=== PATIENT | female | born 1995 | race Caucasian/White ===

== ENCOUNTER 2017-05-23 03:56 | Emergency (ER) | payer MEDICAID, OTHER ==
[2017-05-23 04:10] VITALS: BP 124/78
--- NOTE | 2017-05-23 04:42 | EDM.PDOC ---
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 The cat had been straight but it had been under observation for more than 10 days and hasn't had its immunizations except for rabies. However the cat is under quarantine now and can be watched. Was seen in the clinic earlier this evening and prescribed Augmentin. Throbbing pain and red she's going up the arm prompted her to come into emergency. Low-grade fever but no vomiting no diarrhea. Left Palm Pain Score (Numeric/FACES): 8 - Related Data Allergies Allergy/AdvReac Type Severity Reaction Status Date / Time No Known Allergies Allergy Verified 05/23/17 04:11 Home Meds: Home Meds Acetaminophen/HYDROcodone [[place] 325-5 MG] 1 - 2 tab PO Q4H PRN #12 tab [Rx] Amoxicillin/Potassium Clav [Augmentin 875-125 Tablet] 1 each PO BID 05/23/17 [ History] Past Medical History Cardiovascular History: Reports: Other (See Below) Other Cardiovascular History: palpatations CFA History: Reports: , Spontaneous Psychiatric History: Reports: Anxiety - Past Surgical History HEENT Surgical History: Reports: Tonsillectomy Social & Family History - Tobacco Use Smoking Status *Q: Current Every Day Smoker Years of Tobacco use: 8 Packs/Tins Daily: 0.5 Used Tobacco, but Quit: No Second Hand Smoke Exposure: Yes - Caffeine Use Caffeine Use: Reports: None - Alcohol Use Days Per Week of Alcohol Use: 1 Number of Drinks Per Day: 5 Total Drinks Per Week: 5 - Recreational Drug Use Recreational Drug Use: No ED ROS GENERAL - Review of Systems Review Of Systems: See Below Constitutional: Reports: Fever (low-grade). Denies: Weakness HEENT: Reports: No Symptoms Respiratory: Reports: No Symptoms Cardiovascular: Reports: No Symptoms GI/Abdominal: Reports: No Symptoms Skin: Reports: Other (redness swelling left Palm, thenar eminence, with red streak going up the frazier aspect of the forearm and even into the upper arm) Neurological: Reports: Numbness (mild numbness left hand) ED EXAM, ANIMAL BITE - Physical Exam Exam: See Below Exam Limited By: No Limitations General Appearance: Alert, Anxious, Mild Distress, Other (appears well, vital signs normal except for mild elevation temperature) Eye Exam: Bilateral Eye: Normal Inspection Nose: Normal Inspection Throat/Mouth: Normal Inspection Head: Atraumatic, Normocephalic Neck: Normal Inspection Respiratory/Chest: No Respiratory Distress, No Accessory Muscle Use Cardiovascular: Normal Peripheral Pulses, Regular Rate, Rhythm (anemia) Extremities: Redness ( swelling leftpalm thenar eminence with red streaks extending up the forearm volar aspect and into the upper arm), Other (no abscess ) Neurological: Alert, Oriented, No Motor/Sensory Deficits Psychiatric: Other (normal behavior) Course - Vital Signs Last Recorded V/S: Last Vital Signs Temp 37.8 C 05/23/17 04:09 Pulse 86 05/23/17 04:09 Resp 16 05/23/17 04:09 BP 124/78 05/23/17 04:09 Pulse Ox 100 05/23/17 04:09 - Orders/Labs/Meds Orders: Active Orders 24 hr Category Date Time Status Orthopedic Treatments [RC] ASDIRECTED Care 05/23/17 04:37 Ordered - Re-Assessments/Exams Free Text/Narrative Re-Assessment/Exam: 05/23/17 04:38 21-year-old female with Right to left hand, now infected with localized wound infection but also lymphangitis. Continue current antibiotic Augmentin/clavulanic Prescribed pain medication Sling Note off work Departure - Departure Time of Disposition: 04:38 Disposition: Home, Self-Care 01 Condition: Good Clinical Impression: Lymphangitis Cat bite of left hand Qualifiers: Encounter type: initial encounter Qualified Code(s): S61.452A - Open bite of left hand, initial encounter - Discharge Information Prescriptions: Acetaminophen/HYDROcodone [[place] 325-5 MG] 1 - 2 tab PO Q4H PRN #12 tab PRN Reason: moderate to severe pain Instructions: Animal Bite, [id number] Referrals: PCP,None [Primary Care Provider] - Forms: ED Department Discharge, ED Return to Work/School Form Additional Instructions: according to the [place] vaccination registry site, your last tetanus booster was 2014 so you are up-to-date for immunizations Cat-bite infections are quite common, he did take at least 24 more often 48 hours to start looking better after starting antibiotics. Keep your arm elevated you may apply heat to help the infection prove faster but it may increase the pain you may take ibuprofen for the pain, or the prescription pain medicine. - My Orders Last 24 Hours: My Active Orders 05/23/17 04:37 Orthopedic Treatments [RC] ASDIRECTED - Assessment/Plan Last 24 Hours: My Active Orders 05/23/17 04:37 Orthopedic Treatments [RC] ASDIRECTED
== END 2017-05-23 05:10 | disposition home or self-care (01) ==
LOC: JP.ED 03:56
DX: S61.452A Open bite of left hand, initial encounter (principal); I89.1 Lymphangitis; F17.210 Nicotine dependence, cigarettes, uncomplicated; W55.01XA Bitten by cat, initial encounter
CPT/HCPCS: 99283

== ENCOUNTER 2017-05-28 17:56 | Emergency (ER) | payer MEDICAID, OTHER ==
[2017-05-28 18:21] VITALS: BP 130/75
--- NOTE | 2017-05-28 18:41 | EDM.PDOC ---
ED HPI GENERAL MEDICAL PROBLEM - General Chief Complaint: General Stated Complaint: CAT BITE/MUSCLE ACHES,TIGHT JAW Time Seen by Provider: 05/28/17 18:25 Source of Information: Reports: Patient, Family, Old Records, RN Notes Reviewed History Limitations: Reports: No Limitations - History of Present Illness INITIAL COMMENTS - FREE TEXT/NARRATIVE: 21-year-old female presents emergency department today with concerns for tetanus , she was bitten by a cat at an animal prison on May [place], 6 days ago evaluated in the emergency department May 23 started on antibiotics of Augmentin, the cat is under quarantine has been under quarantine over 10 days no suspicious behavior no concern for rabies at this time. She is experiencing muscle stiffness complains of jaw tightness stiffness no difficulty breathing, tetanus was 2005, she has declined tetanus vaccination Bilateral Shoulder Pain Score (Numeric/FACES): 4 - Related Data Allergies Allergy/AdvReac Type Severity Reaction Status Date / Time No Known Allergies Allergy Verified 05/23/17 04:11 Home Meds: Home Meds Acetaminophen/HYDROcodone [[place] 325-5 MG] 1 - 2 tab PO Q4H PRN #12 tab [Rx] Amoxicillin/Potassium Clav [Augmentin 875-125 Tablet] 1 each PO BID 05/23/17 [ History] Past Medical History Cardiovascular History: Reports: Other (See Below) Other Cardiovascular History: palpatations 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: , 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 Psychiatric History: Reports: Anxiety - Past Surgical History HEENT Surgical History: Reports: Tonsillectomy Social & Family History - Tobacco Use Smoking Status *Q: Light Tobacco Smoker Years of Tobacco use: 10 Packs/Tins Daily: 0.5 Used Tobacco, but Quit: No Second Hand Smoke Exposure: Yes - Caffeine Use Caffeine Use: Reports: Soda - Alcohol Use Days Per Week of Alcohol Use: 1 Number of Drinks Per Day: 5 Total Drinks Per Week: 5 - Recreational Drug Use Recreational Drug Use: No ED ROS GENERAL - Review of Systems Review Of Systems: See Below Constitutional: Denies: Fever, Chills HEENT: Reports: No Symptoms Respiratory: Reports: No Symptoms Cardiovascular: Reports: No Symptoms GI/Abdominal: Reports: No Symptoms : Reports: No Symptoms Musculoskeletal: Reports: Muscle Pain, Muscle Stiffness Skin: Reports: No Symptoms Neurological: Reports: No Symptoms ED EXAM, GENERAL - Physical Exam Exam: See Below Exam Limited By: No Limitations General Appearance: Alert, WD/WN, No Apparent Distress Eye Exam: Bilateral Eye: Normal Inspection Throat/Mouth: Normal Inspection, Normal Lips, Normal Teeth, Normal Gums, Normal Oropharynx, Normal Voice, No Airway Compromise Head: Atraumatic, Normocephalic Neck: Normal Inspection, Supple, Non-Tender, Full Range of Motion Respiratory/Chest: No Respiratory Distress, Lungs Clear, Normal Breath Sounds, No Accessory Muscle Use, Chest Non-Tender Cardiovascular: Regular Rate, Rhythm, No Murmur Course - Vital Signs Last Recorded V/S: Last Vital Signs Temp 96.1 F 05/28/17 18:28 Pulse 78 05/28/17 18:28 Resp 16 05/28/17 18:28 BP 130/75 05/28/17 18:28 Pulse Ox 100 05/28/17 18:28 - Orders/Labs/Meds Orders: Active Orders 24 hr Category Date Time Status TETANUS ANTIBODY IGG [REF] Routine Lab 05/28/17 18:53 Received Labs: Laboratory Tests 05/28/17 05/28/17 05/28/17 Range/Units 18:39 18:39 18:39 WBC 6.7 (4.5-11.0) K/uL RBC 4.69 (3.30-5.50) M/uL Hgb 13.0 D (12.0-15.0) g/dL Hct 38.7 (36.0-48.0) % MCV 83 (80-98) fL MCH 28 (27-31) pg MCHC 34 (32-36) % Plt Count 280 (150-400) K/uL Neut % (Auto) 50 (36-66) % Lymph % (Auto) 38 (24-44) % [place] % (Auto) 10 H (2-6) % Eos % (Auto) 1 L (2-4) % Baso % (Auto) 1 (0-1) % Sodium 142 (140-148) mmol/L Potassium 3.3 L (3.6-5.2) mmol/L Chloride 104 (100-108) mmol/L Carbon Dioxide 28 (21-32) mmol/L Anion Gap 13.3 (5.0-14.0) mmol/L BUN 6 L (7-18) mg/dL Creatinine 0.6 (0.6-1.0) mg/dL Est Cr Clr Drug Dosing 130.30 mL/min Estimated GFR (MDRD) > 60 (>60) Glucose 89 (74-106) mg/dL Calcium 9.2 (8.5-10.1) mg/dL Total Bilirubin 0.2 (0.2-1.0) mg/dL AST 16 (15-37) U/L ALT 19 (12-78) U/L Alkaline Phosphatase 38 L (46-116) U/L Creatine Kinase 33 (26-192) U/L Total Protein 7.2 (6.4-8.2) g/dL Albumin 4.0 (3.4-5.0) g/dL Globulin 3.2 (2.3-3.5) g/dL Albumin/Globulin Ratio 1.3 (1.2-2.2) Departure - Departure Time of Disposition: 19:37 Disposition: Home, Self-Care 01 Condition: Good Clinical Impression: Cat bite of left hand Qualifiers: Encounter type: initial encounter Qualified Code(s): S61.452A - Open bite of left hand, initial encounter - Discharge Information Referrals: PCP,None [Primary Care Provider] - Forms: ED Department Discharge Additional Instructions: Please complete the course of antibiotics prescribed, please establish with a primary care provider for further evaluation, call return to the emergency department worsening of symptoms - My Orders Last 24 Hours: My Active Orders 05/28/17 18:53 TETANUS ANTIBODY IGG [REF] Routine - Assessment/Plan Last 24 Hours: My Active Orders 05/28/17 18:53 TETANUS ANTIBODY IGG [REF] Routine Plan: Assessment Acuity = acute Site and laterality = cat-bite with potential for tetanus exposure Etiology = local cellulitis currently on antibiotics of Augmentin Manifestations = muscle stiffness Location of injury = Home Lab values = CBC within normal limits potassium low at 3.3 consistent hypokalemia, CK level within normal limits Plan I again offered her tetanus prophylaxis she declined recommend she continue and complete the course of antibiotics follow up with her primary care in 3-5 days for reevaluation if no improvement This note was dictated using [employer] voice recognition software please call with any questions on syntax or cheryl.
== END 2017-05-28 19:56 | disposition home or self-care (01) ==
LOC: JP.ED 17:56
DX: S61.452A Open bite of left hand, initial encounter (principal); L03.114 Cellulitis of left upper limb; F17.210 Nicotine dependence, cigarettes, uncomplicated; W55.01XA Bitten by cat, initial encounter
CPT/HCPCS: 36415; 80053; 82550; 85025; 86317; 99284

== ENCOUNTER 2018-11-08 14:52 | Emergency (ER) | payer SELFPAY ==
[2018-11-08 15:10] VITALS: BP 128/85
--- NOTE | 2018-11-08 15:43 | EDM.PDOC ---
ED HPI GENERAL MEDICAL PROBLEM - General Chief Complaint: General Stated Complaint: NOT FEELING WELL Time Seen by Provider: 11/08/18 15:29 Source of Information: Reports: Patient History Limitations: Reports: No Limitations - History of Present Illness INITIAL COMMENTS - FREE TEXT/NARRATIVE: This lady said that she's been having some muscle spasms for about an hour. They 're mostly in her upper arms she's had some in her hands. She said she's had some diarrhea off and on for a week but has not been vomiting however. She drank about a half bottle of vodka last night. Earlier today she drank a bottle of Pedialyte and says she held that down without any problems. She thinks maybe she might be dehydrated and needs IV fluid. She does not complain of dizziness when she is up walking. 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 Psychiatric History: Reports: Anxiety - Past Surgical History HEENT Surgical History: Reports: Tonsillectomy Social & Family History - Tobacco Use Smoking Status *Q: Current Every Day Smoker Years of Tobacco use: 9 Packs/Tins Daily: 0.5 - Caffeine Use Caffeine Use: Reports: Coffee, Soda, Tea - Recreational Drug Use Recreational Drug Use: No ED ROS GENERAL - Review of Systems Review Of Systems: See Below Constitutional: Reports: No Symptoms HEENT: Reports: No Symptoms Respiratory: Reports: No Symptoms Cardiovascular: Reports: No Symptoms Endocrine: Reports: No Symptoms GI/Abdominal: Reports: Other (Diarrhea on and off) : Reports: No Symptoms Musculoskeletal: Reports: Other (See history of present illness) Skin: Reports: No Symptoms Neurological: Reports: No Symptoms Psychiatric: Reports: No Symptoms Hematologic/Lymphatic: Reports: No Symptoms Immunologic: Reports: No Symptoms ED EXAM, GENERAL - Physical Exam Exam: See Below Exam Limited By: No Limitations General Appearance: Alert, WD/WN, No Apparent Distress Eye Exam: Bilateral Eye: Normal Inspection Nose: Normal Inspection Throat/Mouth: Normal Oropharynx Head: Atraumatic Neck: Normal Inspection Respiratory/Chest: No Respiratory Distress, Lungs Clear Cardiovascular: Regular Rate, Rhythm, No Murmur GI/Abdominal: Non-Tender Back Exam: Normal Inspection Extremities: Normal Inspection Neurological: Alert, Oriented, CN II-XII Intact, Normal Cognition, No Motor/ Sensory Deficits Psychiatric: Normal Affect Skin Exam: Warm, Dry Course - Vital Signs Last Recorded V/S: Last Vital Signs Temp 35.9 C 11/08/18 15:15 Pulse 69 11/08/18 15:15 Resp 16 11/08/18 15:15 BP 128/85 11/08/18 15:15 Pulse Ox 100 11/08/18 15:15 - Re-Assessments/Exams Free Text/Narrative Re-Assessment/Exam: 11/08/18 15:58 Standing blood pressure and pulse show very little change. This patient has no signs of volume depletion or dehydration. She does not need any kind of lab testing or IV fluids. She's tolerating oral liquids just fine. She's just had some cramps for 1 hour so it doesn't make any sense to be giving her IV fluids. It is recommended that she continue to rehydrate herself and she can add a little bit of salt to that Departure - Departure Time of Disposition: 15:40 Disposition: Home, Self-Care 01 Condition: Fair Clinical Impression: Muscle cramps - Discharge Information Instructions: Muscle Cramps and Spasms, [id number] Referrals: PCP,None [Primary Care Provider] - Forms: ED Department Discharge Additional Instructions: Try drinking either pedialyte or gatorade with between 1/2 and 1 teaspoon regular table salt. Calcium tablets (TUMS) help some people also. Avoid excess alcohol
== END 2018-11-08 15:50 | disposition home or self-care (01) ==
LOC: JP.ED 14:52
DX: R25.2 Cramp and spasm (principal); F17.210 Nicotine dependence, cigarettes, uncomplicated
CPT/HCPCS: 99283

== ENCOUNTER 2021-09-25 17:10 | Emergency (ER) | payer MEDICAID ==
[2021-09-25 17:47] VITALS: BP 114/76; PULSE 83
== END 2021-09-25 17:44 | disposition left against medical advice (07) ==
LOC: JP.ED 17:10
DX: R00.2 Palpitations (principal); Z53.21 Procedure and treatment not carried out due to patient leaving prior to being seen by health care provider

== ENCOUNTER 2022-09-10 10:54 | Emergency (ER) | payer MEDICAID ==
[2022-09-10 11:17] VITALS: BP 138/78; PULSE 89
[2022-09-10 12:18] LABS: ESTIMATED GFR 120 mL/min (>60)
[2022-09-10 12:23] LABS: CORONAVIRUS COVID-19 NAA NEGATIVE (NEGATIVE)
[2022-09-10 12:39] LABS: LYME AB IgG Negative (Negative); LYME AB IgM Negative (Negative)
== END 2022-09-10 13:13 | disposition home or self-care (01) ==
LOC: JP.ED 10:54
DX: F41.9 Anxiety disorder, unspecified (principal); F17.210 Nicotine dependence, cigarettes, uncomplicated; Z20.822 Contact with and (suspected) exposure to COVID-19; Z79.899 Other long term (current) drug therapy
CPT/HCPCS: 0241U; 36415; 80053; 81001; 84443; 85025; 86618; 99283; 99284

== ENCOUNTER 2022-10-13 17:33 | Emergency (ER) | payer MEDICAID ==
[2022-10-13 17:44] VITALS: BP 117/79; PULSE 72
[2022-10-13 18:14] LABS: BASOPHILS ABSOLUTE AUTO 0.06 K/uL (0.00-0.10); BASOPHILS PERCENT AUTO 0.6 % (0.1-1.3); EOSINOPHILS ABSOLUTE AUTO 0.07 K/uL (0.00-0.40); EOSINOPHILS PERCENT AUTO 0.7 % (0.0-5.4); HEMATOCRIT 34.8 % (34.3-46.0); HEMOGLOBIN 11.7 g/dL (11.2-15.5); IMMATURE GRAN ABSOLUTE AUTO 0.03 K/uL (0.00-0.23); IMMATURE GRAN PERCENT AUTO 0.3 % (0.0-0.7); LYMPHOCYTES ABSOLUTE AUTO 3.17 K/uL (0.8-3.3); LYMPHOCYTES PERCENT AUTO 29.5 % (11.4-47.7); MEAN CORPUSCULAR HEMOGLOBIN 27.7 pg (31.6-35.5); MEAN CORPUSCULAR HGB CONC 33.6 g/dL (31.6-35.5); MEAN CORPUSCULAR VOLUME 82.5 fL (81.4-99.0); MONOCYTES ABSOLUTE AUTO 0.67 K/uL (0.20-0.90); MONOCYTES PERCENT AUTO 6.2 % (3.3-12.6); NEUTROPHILS ABSOLUTE AUTO 6.74 K/uL (1.0-7.6); NEUTROPHILS PERCENT AUTO 62.7 % (40.0-78.1); PLATELET COUNT,PLT 266 K/uL (130-375); RED BLOOD CELL COUNT 4.22 M/uL (3.77-5.24); WHITE BLOOD CELL COUNT,WBC 10.7 K/uL (3.2-11.0)
[2022-10-13 18:25] LABS: APPEARANCE,URINE CLOUDY (CLEAR); BILIRUBIN,URINE NEGATIVE (NEGATIVE); COLOR,URINE RED (YELLOW); GLUCOSE,URINE NEGATIVE (NEGATIVE); KETONES,URINE TRACE mg/dL (NEGATIVE); LEUKOCYTE ESTERASE,URINE SMALL (NEGATIVE); NITRITE,URINE NEGATIVE (NEGATIVE); OCCULT BLOOD,URINE LARGE (NEGATIVE); PH,URINE 6.5 (5.0-8.0); PROTEIN,URINE 100 mg/dL (NEGATIVE); UROBILINOGEN,URINE 0.2 EU/dL (0.2-1.0)
[2022-10-13 18:33] LABS: AMORPHOUS SEDIMENT,URINE NOT SEEN; BACTERIA,URINE RARE; EPITHELIAL CELLS,URINE MANY; MUCUS,URINE NOT SEEN; RBC,URINE 75-100 (0-5)
[2022-10-13 18:34] LABS: A/G RATIO 1.2 (1.2-2.2); ALANINE AMINOTRANSFERASE,ALT 24 U/L (12-78); ALBUMIN 3.5 g/dL (3.4-5.0); ALKALINE PHOSPHATASE 34 U/L (46-116); ASPARTATE AMNIOTRANSFERASE,AST 15 U/L (15-37); BILIRUBIN TOTAL 0.4 mg/dL (0.2-1.0); BLOOD UREA NITROGEN,BUN 3 mg/dL (7-18); CALCIUM 8.4 mg/dL (8.5-10.1); CARBON DIOXIDE,CO2 26 mmol/L (21-32); CHLORIDE,CL 100 mmol/L (100-108); CREATINE KINASE,CK 30 U/L (26-192); CREATININE 0.5 mg/dL (0.6-1.0); EST CRCL DRUG DOSING (CG) 149.39 mL/min; ESTIMATED GFR 130 mL/min (>60); GLUCOSE RANDOM 85 mg/dL (74-106); MAGNESIUM 1.8 mg/dL (1.8-2.4); POTASSIUM,K 3.2 mmol/L (3.6-5.2); PROTEIN TOTAL,TP 6.5 g/dL (6.4-8.2); SODIUM,NA 134 mmol/L (140-148)
[2022-10-13 18:36] LABS: ANION GAP 11.2 mmol/L (5.0-14.0)
== END 2022-10-13 19:24 | disposition home or self-care (01) ==
LOC: JP.ED 17:33
DX: R25.2 Cramp and spasm (principal); Z87.891 Personal history of nicotine dependence
CPT/HCPCS: 36415; 80053; 81001; 82550; 83735; 85025; 99285